=== PATIENT | female | born 1945 | race Caucasian/White ===

== ENCOUNTER → 2020-07-12 | Outpatient (CLI) | payer OTHER | LOC: HYPER 08:14 | PROVIDERS: ATTEND Specialist | DX: T81.89XA Other complications of procedures, not elsewhere classified, initial encounter (principal); I87.312 Chronic venous hypertension (idiopathic) with ulcer of left lower extremity; L97.822 Non-pressure chronic ulcer of other part of left lower leg with fat layer exposed; C44.722 Squamous cell carcinoma of skin of right lower limb, including hip; E78.00 Pure hypercholesterolemia, unspecified; R60.9 Edema, unspecified; F17.200 Nicotine dependence, unspecified, uncomplicated; Z90.49 Acquired absence of other specified parts of digestive tract; Y92.238 Other place in hospital as the place of occurrence of the external cause; Y83.8 Other surgical procedures as the cause of abnormal reaction of the patient, or of later complication, without mention of misadventure at the time of the procedure ==

== ENCOUNTER → 2020-07-18 | Outpatient (CLI) | payer OTHER | LOC: HYPER 09:33 | PROVIDERS: ATTEND Emergency Medicine Emergency Medical Services | DX: T81.89XD Other complications of procedures, not elsewhere classified, subsequent encounter (principal); I87.312 Chronic venous hypertension (idiopathic) with ulcer of left lower extremity; L97.822 Non-pressure chronic ulcer of other part of left lower leg with fat layer exposed; C44.722 Squamous cell carcinoma of skin of right lower limb, including hip; E78.00 Pure hypercholesterolemia, unspecified; R60.9 Edema, unspecified; F17.200 Nicotine dependence, unspecified, uncomplicated; Z90.49 Acquired absence of other specified parts of digestive tract; Y83.8 Other surgical procedures as the cause of abnormal reaction of the patient, or of later complication, without mention of misadventure at the time of the procedure ==

== ENCOUNTER → 2020-08-09 | Outpatient (CLI) | payer OTHER | LOC: HYPER 08:48 | PROVIDERS: ATTEND Specialist | DX: T81.89XD Other complications of procedures, not elsewhere classified, subsequent encounter (principal); I87.312 Chronic venous hypertension (idiopathic) with ulcer of left lower extremity; L97.822 Non-pressure chronic ulcer of other part of left lower leg with fat layer exposed; C44.722 Squamous cell carcinoma of skin of right lower limb, including hip; E78.00 Pure hypercholesterolemia, unspecified; R60.9 Edema, unspecified; F17.200 Nicotine dependence, unspecified, uncomplicated; Z90.49 Acquired absence of other specified parts of digestive tract; Y83.8 Other surgical procedures as the cause of abnormal reaction of the patient, or of later complication, without mention of misadventure at the time of the procedure ==

== ENCOUNTER → 2020-08-23 | Outpatient (CLI) | payer OTHER | LOC: HYPER 07:42 | PROVIDERS: ATTEND Specialist | DX: T81.89XD Other complications of procedures, not elsewhere classified, subsequent encounter (principal); I87.312 Chronic venous hypertension (idiopathic) with ulcer of left lower extremity; L97.822 Non-pressure chronic ulcer of other part of left lower leg with fat layer exposed; C44.722 Squamous cell carcinoma of skin of right lower limb, including hip; R60.9 Edema, unspecified; F17.200 Nicotine dependence, unspecified, uncomplicated; E78.00 Pure hypercholesterolemia, unspecified; Z79.899 Other long term (current) drug therapy; Y83.8 Other surgical procedures as the cause of abnormal reaction of the patient, or of later complication, without mention of misadventure at the time of the procedure ==

== ENCOUNTER → 2020-09-06 | Outpatient (CLI) | payer OTHER | LOC: HYPER 07:43 | PROVIDERS: ATTEND Specialist | DX: T81.89XD Other complications of procedures, not elsewhere classified, subsequent encounter (principal); I87.312 Chronic venous hypertension (idiopathic) with ulcer of left lower extremity; L97.822 Non-pressure chronic ulcer of other part of left lower leg with fat layer exposed; L84 Corns and callosities; C44.722 Squamous cell carcinoma of skin of right lower limb, including hip; R60.9 Edema, unspecified; E78.00 Pure hypercholesterolemia, unspecified; F17.200 Nicotine dependence, unspecified, uncomplicated; Y83.8 Other surgical procedures as the cause of abnormal reaction of the patient, or of later complication, without mention of misadventure at the time of the procedure ==

== ENCOUNTER → 2020-09-27 | Outpatient (CLI) | payer OTHER | LOC: HYPER 07:45 | PROVIDERS: ATTEND Specialist | DX: I87.312 Chronic venous hypertension (idiopathic) with ulcer of left lower extremity (principal); L97.822 Non-pressure chronic ulcer of other part of left lower leg with fat layer exposed; C44.722 Squamous cell carcinoma of skin of right lower limb, including hip; R60.9 Edema, unspecified; E78.00 Pure hypercholesterolemia, unspecified; F17.200 Nicotine dependence, unspecified, uncomplicated; Z79.899 Other long term (current) drug therapy ==